=== PATIENT | male | born 2005 | race Two or more races ===

== ENCOUNTER 2025-01-18 22:21 | Emergency (ER) | payer SELFPAY ==
[2025-01-18] MEDS ORDERED: Sodium Chloride 0.9% 2.5 ML Syringe FLUSH PRN (22:30)
[2025-01-18] MEDS ORDERED: Sodium Chloride 0.9% 10 ML Syringe FLUSH PRN (22:30)
[2025-01-18] MEDS: LORazepam 2 MG/ML SDV IVPUSH ONE (22:34)
[2025-01-18 22:35] LABS: BASOPHILS ABSOLUTE AUTO 0.09 K/uL (0.00-0.30); BASOPHILS PERCENT AUTO 0.6 % (0.0-1.0); EOSINOPHILS ABSOLUTE AUTO 0.24 K/uL (0.00-0.70); EOSINOPHILS PERCENT AUTO 1.5 % (0.0-5.0); IMMATURE GRAN ABSOLUTE AUTO 0.09 K/uL (0.00-0.05); IMMATURE GRAN PERCENT AUTO 0.6 % (0.0-0.4); LYMPHOCYTES ABSOLUTE AUTO 3.20 K/uL (2.00-8.80); LYMPHOCYTES PERCENT AUTO 19.9 % (50.0-65.0); MEAN PLATELET VOLUME 9.6 fL (9.4-12.4); MONOCYTES ABSOLUTE AUTO 1.38 K/uL (0.10-1.40); MONOCYTES PERCENT AUTO 8.6 % (2.0-10.0); NEUTROPHILS ABSOLUTE AUTO 11.06 K/uL (1.50-8.50); NEUTROPHILS PERCENT AUTO 68.8 % (35.0-45.0); NRBC ABSOLUTE 0.00 K/uL (0.00-0.03); NRBC PERCENT 0.0 /100WBC (0.0-0.2); PLATELET COUNT,PLT 339 K/uL (150-400); RED BLOOD CELL COUNT 4.77 M/uL (4.52-5.90); WHITE BLOOD CELL COUNT,WBC 16.06 K/uL (4.5-13.5)
[2025-01-18 22:38] LABS: BASE EXCESS VENOUS 2.1 (-2.0-3.0); BICARBONATE,VENOUS 21.0 mEq/L (22-29); PCO2 VENOUS 21.0 mmHG (41-51); PH,VENOUS 7.61 (7.32-7.43); PO2 VENOUS 41.0 mmHG (35-45)
[2025-01-18 23:10] LABS: A/G RATIO 1.0 (0.9-1.6); ALANINE AMINOTRANSFERASE,ALT 118 IU/L (14-63); ASPARTATE AMNIOTRANSFERASE,AST 50 IU/L (15-37); BILIRUBIN TOTAL 0.6 mg/dL (0.2-1.0); BLOOD UREA NITROGEN,BUN 14 mg/dL (7.0-18.0); CARBON DIOXIDE,CO2 22.7 mmol/L (21.0-32.0); CHLORIDE,CL 105 mmol/L (98-107); CREATININE 1.1 mg/dL (0.8-1.3); GLUCOSE RANDOM 96 mg/dL (74-106); POTASSIUM,K 3.5 mmol/L (3.5-5.1); PROTEIN TOTAL,TP 8.4 g/dL (6.4-8.2); SODIUM,NA 140 mmol/L (136-148); TSH ULTRASENSITIVE 1.56 uIU/mL (0.36-3.74)
[2025-01-18 23:23] LABS: ESTIMATED GFR 99 mL/min (>60); ETHANOL BLOOD MEDICAL < 3.0 mg/dL
== END 2025-01-19 00:40 | disposition home or self-care (01) ==
LOC: MW.ED 22:21
DX: R07.9 Chest pain, unspecified (principal); R06.4 Hyperventilation; F41.0 Panic disorder [episodic paroxysmal anxiety]
CPT/HCPCS: 36415; 70450; 71045; 80053; 80143; 80179; 80307; 82803; 84443; 84484; 85025; 85379; 93005; 96374; 99285; J2060; 93010; 99283